=== PATIENT | female | born 1970 | race Two or more races ===

== ENCOUNTER 2024-10-30 15:50 | Emergency (ER) | payer OTHER ==
[~2024-10-30] VITALS: Ht 160 cm; Wt 112.5 kg
[2024-10-30] MEDS ORDERED: METFORMIN HCL500 M3 (16:57)
[2024-10-30] MEDS ORDERED: FAMOTIDINE/PF 20 MG in 0.9 % SODIUM CHLORIDE 8 ML IV PUSH STA (17:16)
[2024-10-30] MEDS ORDERED: 0.9 % SODIUM CHLORIDE 1,000 ML IV STA (17:16)
[2024-10-30] MEDS ORDERED: FAMOTIDINE/PF 20 MG/2 ML VIAL ONE (18:48)
[2024-10-30 20:43] LABS: PH,URINE 5.5 (5.0-8.0); URINE APPEARANCE Cloudy; URINE BILIRRUBIN Small (NEGATIVE); URINE BLOOD Negative; URINE COLOR Dark Yellow; URINE GLUCOSE Negative (NEGATIVE); URINE KETONE Negative (NEGATIVE); URINE LEUKOCYTE Negative; URINE NITRATE Negative; URINE PROTEIN 30 (NEGATIVE); URINE UROBILINOGEN 0.2 E.U./dl
[2024-10-30 20:47] LABS: URINE CAST 5.44 uL (0.0-1.40); URINE EPITHELIAL CELLS 98.4 uL (0.0-38.8); URINE RBC 15.9 uL (0.0-20.8); URINE WBC 145.1 uL (0.0-23.2)
[2024-10-30 21:29] LABS: URINE BACTERIA > 9821.5 uL (0.0-1933)
[2024-10-30 21:44] LABS: CALCIUM 8.5 mg/dL (8.5-10.1); CREATININE SERUM 0.76 mg/dL (0.55-1.02); GFR 79.91; POTASSIUM 3.53 mEq/L (3.5-5.1)
[2024-10-30 22:03] LABS: HEMATOCRIT 35.2 % (36.0-45.00); HEMOGLOBIN 11.1 g/dL (12.0-15.00); MEAN CELL VOLUME 69.2 fL (80.00-100.00); MEAN CORPUSCULAR HEMOGLOBIN 21.8 pg (27.00-32.0); MEAN CORPUSCULAR HGB CONC 31.5 g/dl (32.0-36.0); PLATELET COUNT 272 K/uL (150-450); RED BLOOD COUNT 5.09 M/uL (4.00-6.00); RED CELL DISTRIBUTION WIDTH 20.8 % (11.5-14.5)
[2024-10-31] MEDS ORDERED: INTESTINEX680 M1 PO (03:14)
[2024-10-31] MEDS ORDERED: PEPCID40 MG PO (03:14)
[2024-10-31] MEDS ORDERED: LEVSIN/SL0.125 MG SL (03:14)
== END 2024-10-31 03:24 ==
LOC: ER 15:53
PROVIDERS: Emergency Medicine
DX: K52.9 Noninfective gastroenteritis and colitis, unspecified (principal); E11.9 Type 2 diabetes mellitus without complications; Z79.84 Long term (current) use of oral hypoglycemic drugs; Z88.0 Allergy status to penicillin